=== PATIENT | female | born 1945 | race Caucasian/White ===

== ENCOUNTER → 2018-05-02 | Outpatient (REF) | payer MEDICARE, OTHER ==
[2018-05-02 13:38] LABS: ALBUMIN 3.2 GM/DL (3.2-5.2); ALT/SGPT 16 U/L (12-78); BILIRUBIN,TOTAL 0.7 MG/DL (0.2-1.0); BLOOD UREA NITROGEN 14 MG/DL (7-18); CALCIUM LEVEL 8.4 MG/DL (8.8-10.2); CARBON DIOXIDE LEVEL 26 MEQ/L (21-32); CHLORIDE LEVEL 107 MEQ/L (98-107); CHOLESTEROL LEVEL 160 MG/DL (<200); CHOLESTEROL RISK RATIO 2.285 (<5); CREATININE FOR GFR 0.66 MG/DL (0.55-1.30); GLOMERULAR FILTRATION RATE > 60.0 (>39); GLUCOSE, FASTING 97 MG/DL (70-100); HDL CHOLESTEROL 70 MG/DL (>40); LDL CHOLESTEROL 74 MG/DL (<100); NON-HDL-C 90 MG/DL; POTASSIUM SERUM 3.9 MEQ/L (3.5-5.1); SODIUM LEVEL 143 MEQ/L (136-145); TOTAL PROTEIN 6.1 GM/DL (6.4-8.2); TRIGLYCERIDES LEVEL 78 MG/DL (<150)
[2018-05-02 13:44] LABS: HEMOGLOBIN A1c 5.2 %
== END ==
LOC: M SFHCPLAZ 10:01
PROVIDERS: ATTEND Family Medicine
DX: I10 Essential (primary) hypertension (principal); E78.2 Mixed hyperlipidemia; Z13.1 Encounter for screening for diabetes mellitus
CPT/HCPCS: 36415; 80053; 80061; 83036; G0463

== ENCOUNTER → 2018-05-21 | Outpatient (CLI) | payer MEDICARE, OTHER ==
--- NOTE | 2018-06-03 15:23 | REPMRS ---
Patient History The patient states she had a clinical breast exam in April 2018. Patient is postmenopausal. No known family history of cancer. 3D TOMOSYNTHESIS WAS PERFORMED. Digital Mammo Screening Bilat: May 21, 2018 - Exam #: [id number] Bilateral CC and MLO view(s) were taken. Technologist: Lynsey Davison, Technologist Prior study comparison: September 10, 2015, bilateral digital mammo screening bilat, performed at [place], [place]. FINDINGS: The breast tissue is heterogeneously dense. This may lower the sensitivity of mammography. There has been no change in the appearance of the mammogram from the prior studies. There is a moderate amount of residual fibroglandular tissue which is fairly symmetric. There is no interval development of dominant mass, areas of architectural distortion, or clustered microcalcification typical of malignancy. Assessment: BI-RADS/ACR category 1 mammogram. Negative Mammogram. Recommendation Routine screening mammogram in 1 year (for women over age 40). This mammogram was interpreted with the aid of an FDA-approved computer-aided dectection system. Electronically Signed By: Max Sharma MD 06/03/18 [id number]
== END ==
LOC: M RAD 09:04
PROVIDERS: ATTEND Obstetrics & Gynecology
DX: Z12.31 Encounter for screening mammogram for malignant neoplasm of breast (principal); N60.31 Fibrosclerosis of right breast; N60.32 Fibrosclerosis of left breast

== ENCOUNTER → 2018-06-26 | Outpatient (REF) | payer OTHER, MEDICARE ==
[2018-06-26 11:55] LABS: IONIZED CALCIUM 4.6 MG/DL (4.5-5.3)
[2018-06-26 12:37] LABS: TOTAL 25(OH) VITAMIN D 15.2 NG/ML (30.0-100.0)
== END ==
LOC: M SFHCPLAZ 10:09
PROVIDERS: ATTEND Family Medicine
DX: E83.51 Hypocalcemia (principal)